=== PATIENT | female | born 1940 | race Caucasian/White ===

== ENCOUNTER → 2016-11-28 | Outpatient (CLI) | payer OTHER | LOC: KOH-I 15:16 | DX: M79.605 Pain in left leg (principal); M79.89 Other specified soft tissue disorders; R60.0 Localized edema | CPT/HCPCS: 93971 ==

== ENCOUNTER → 2020-10-21 | Outpatient (CLI) | payer OTHER ==
[~2020-10-21] VITALS: Ht 167.6 cm; Wt 90.7 kg
== END ==
LOC: OPSV 10-20 14:00
DX: M81.0 Age-related osteoporosis without current pathological fracture (principal); M48.00 Spinal stenosis, site unspecified
CPT/HCPCS: 96365; J3489

== ENCOUNTER → 2021-11-29 | Outpatient (CLI) | payer OTHER ==
[~2021-11-29] VITALS: Ht 167.6 cm; Wt 89.8 kg
[~2021-11-29] MED LIST: CEPHALEXIN500 MG PO
== END ==
LOC: OPSV 14:00
DX: M81.0 Age-related osteoporosis without current pathological fracture (principal)
CPT/HCPCS: 96365; J3489